=== PATIENT | male | born 1980 | race African-American/Black ===

== ENCOUNTER 2024-05-16 17:51 | Inpatient (IN) | payer OTHER ==
[2024-05-16 18:23] VITALS: BMI 24.8
[2024-05-16] MEDS ORDERED: DICYCLOMINE HCL 10 MG CAPSULE PO PRN (19:05)
[2024-05-16] MEDS ORDERED: LOPERAMIDE HCL 2 MG CAPSULE PO PRN (19:05)
[2024-05-16] MEDS ORDERED: BENZONATATE 200 MG CAPSULE PO PRN (19:05)
[2024-05-16] MEDS ORDERED: NALOXONE (NYS OPIOID OVERDOSE PROGRAM) 4 MG/0.1 ML SPRAY NS PRN (19:05)
[2024-05-16] MEDS ORDERED: IBUPROFEN 400 MG TABLET (FP) PO PRN (19:05)
[2024-05-16] MEDS ORDERED: guaiFENesin 600 MG TABLET.ER (FP) PO PRN (19:05)
[2024-05-16] MEDS ORDERED: BENZOCAINE/MENTHOL (CHLORASEPTIC ) LOZENGE MM PRN (19:05)
[2024-05-16] MEDS ORDERED: POLYETHYLENE GLYCOL (HEALTHYLAX) 3350 17 GM PACKET PO PRN (19:05)
[2024-05-16] MEDS ORDERED: MAGNESIUM HYDROX 2400MG/30ML ORAL SUSPENSION 30 ML CUP PO PRN (19:05)
[2024-05-16] MEDS ORDERED: NALOXONE (NARCAN) HCL 4 MG/0.1 ML SPRAY NS PRN (19:05)
[2024-05-16] MEDS ORDERED: levETIRAcetam 500 MG TABLET (FP) PO ONE (19:17)
[2024-05-16] MEDS: LORazepam 2 MG/ML SDV VIAL IM ONE (19:18)
[2024-05-16] MEDS: levETIRAcetam 500 MG TABLET (FP) PO ONE (19:18)
[2024-05-16] MEDS: hydrOXYzine PAMOATE 25 MG CAPSULE (FP) PO PRN (21:09)
[2024-05-16] MEDS ORDERED: levETIRAcetam 500 MG TABLET (FP) PO SCH (22:00)
[2024-05-16] MEDS: IBUPROFEN 600 MG TABLET (FP) PO PRN (22:18)
[2024-05-16] MEDS: chlordiazePOXIDE HCL 25 MG CAPSULE PO SCH (22:19)
[2024-05-16] MEDS: METHOCARBAMOL 500 MG TABLET PO PRN (22:19)
[2024-05-16] MEDS: MELATONIN 5 MG TABLETS PO SCH (22:19)
[2024-05-16] MEDS: THIAMINE 100 MG TABLET PO SCH (22:19)
[2024-05-17] MEDS: cloNIDine HCL 0.1 MG TABLET PO ONE (07:35)
[2024-05-17] MEDS: levETIRAcetam 500 MG TABLET (FP) PO SCH (10:09)
[2024-05-17] MEDS: PRENATAL VITAMINS W/ FOLIC ACID TABLET (FP) PO SCH (10:09)
[2024-05-17] MEDS: FLU VACCINE (FLULAVAL) PF 45 MCG/0.5 ML SYRINGE 2024-2025 IM ONE (11:15)
[2024-05-17] MEDS: SERTRALINE HCL 25 MG TABLET (FP) PO SCH (12:38)
[2024-05-17] MEDS: GABAPENTIN 300 MG CAPSULE PO SCH (13:16)
[2024-05-17] MEDS: cloNIDine HCL 0.1 MG TABLET PO PRN (14:57)
[2024-05-17] MEDS: chlordiazePOXIDE HCL 25 MG CAPSULE PO PRN (14:57)
[2024-05-17] MEDS: ACETAMINOPHEN 325 MG TABLET (FP) PO PRN (17:13)
[2024-05-17] MEDS: QUEtiapine FUMARATE 50 MG TABLET PO SCH (22:30)
[2024-05-17] MEDS: FLUOCINONIDE 0.05% TOP OINT (15 GM TUBE) TP SCH (22:31)
[2024-05-18] MEDS: chlordiazePOXIDE HCL 25 MG CAPSULE PO SCH (06:01)
[2024-05-18] MEDS: ALBUTEROL SO4 HFA INHALER IH PRN (10:33)
[2024-05-18] MEDS: BISMUTH SUBSALICYLATE 524 MG/30 ML PO PRN (18:45)
[2024-05-19] MEDS ORDERED: chlordiazePOXIDE HCL 10 MG CAPSULE PO PRN
[2024-05-19] MEDS: chlordiazePOXIDE HCL 10 MG CAPSULE PO SCH (05:52)
[2024-05-19] MEDS: ONDANSETRON *ODT* 4 MG TABLET SL PRN (10:14)
[2024-05-19] MEDS: cloNIDine HCL 0.1 MG TABLET PO ONE (17:37)
[2024-05-20] MEDS: chlordiazePOXIDE HCL 10 MG CAPSULE PO SCH (05:31)
[2024-05-20] MEDS ORDERED: COLLOIDAL OATMEAL 1 BAR EACH TP PRN (11:05)
[2024-05-20] MEDS ORDERED: CALMINE 3% AND PRAMOXINE 1% 118 ML BOTTLE TP PRN (11:15)
[2024-05-20] MEDS ORDERED: CALAMINE 8% TOPICAL LOTION 177 ML BOTTLE TP PRN ×2 (11:59→13:11)
[2024-05-20] MEDS ORDERED: amLODIPine BESYLATE 10 MG TABLET (FP) PO SCH (16:45)
[2024-05-20] MEDS: amLODIPine BESYLATE 5 MG TABLET (FP) PO SCH (17:08)
[2024-05-20] MEDS: cloNIDine HCL 0.1 MG TABLET PO ONE (21:16)
[2024-05-21] MEDS: chlordiazePOXIDE HCL 10 MG CAPSULE PO ONE (05:50)
[2024-05-21] MEDS: FLU VACCINE (FLULAVAL) PF 45 MCG/0.5 ML SYRINGE 2024-2025 IM ONE (09:26)
[2024-05-21] MEDS: MAG HYDROX/AL HYDROX/SIMETH 30 ML UNIT-DOSE CUP PO PRN (11:57)
[2024-05-21] MEDS: cloNIDine HCL 0.1 MG TABLET PO ONE (14:34)
[2024-05-21 15:01] LABS: HEMATOCRIT 32.2 % (35.4-49); HEMOGLOBIN 10.3 GM/dL (11.7-16.9); MCH 30.5 pg (25.7-33.7); MCHC 31.9 g/dl (32.0-35.9); MEAN CELL VOLUME 95.8 fl (80-96); MEAN PLT VOLUME 8.5 fl (7.5-11.1); PLATELET COUNT 117 10^3/uL (134-434); RBC 3.36 M/mm3 (4.00-5.60); RDW 17.9 % (11.9-15.9); WHITE BLOOD COUNT 4.8 K/mm3 (4.0-10.0)
[2024-05-21 15:23] LABS: POTASSIUM 4.1 mmol/L (3.5-5.1)
[2024-05-21 15:27] LABS: CALCIUM 9.5 mg/dL (8.5-10.1)
[2024-05-21 15:28] LABS: ALBUMIN 3.6 g/dl (3.4-5.0); BLOOD UREA NITROGEN 15.3 mg/dL (7-18)
[2024-05-21 15:32] LABS: CREATININE 0.9 mg/dL (0.55-1.3)
[2024-05-21 15:33] LABS: BILIRUBIN,TOTAL 0.5 mg/dL (0.2-1)
[2024-05-22 09:13] VITALS: BP 150/94; PULSE 87; RESP 20; TEMP 98.2
== END 2024-05-22 11:16 | disposition other institution (70) | DRG 775 ==
LOC: YASAS 17:51 → Y3N 20:48
PROVIDERS: ADMIT Allergy & Immunology; ATTEND Surgery
PROC: HZ2ZZZZ Detoxification Services for Substance Abuse Treatment (ICD-10-PCS; principal; 2024-05-16)
DX: F10.220 Alcohol dependence with intoxication, uncomplicated (principal); F12.10 Cannabis abuse, uncomplicated; F17.210 Nicotine dependence, cigarettes, uncomplicated; F33.1 Major depressive disorder, recurrent, moderate; F10.280 Alcohol dependence with alcohol-induced anxiety disorder; F10.282 Alcohol dependence with alcohol-induced sleep disorder; I10 Essential (primary) hypertension; J45.909 Unspecified asthma, uncomplicated; L30.9 Dermatitis, unspecified; Z86.718 Personal history of other venous thrombosis and embolism; Z86.69 Personal history of other diseases of the nervous system and sense organs; Z62.810 Personal history of physical and sexual abuse in childhood
CPT/HCPCS: 36415; 80053; 80305; 80307; 85027; 87811; 90656; 93005; 93010; G0008; Q0162